=== PATIENT | female | born 1995 | race African-American/Black ===

== ENCOUNTER 2020-01-22 19:09 | Emergency (ER) | payer MEDICAID, OTHER ==
[2020-01-22 19:32] LABS: Bilirubin Negative (Negative); Blood, Urine Large (Negative); Clarity Cloudy (Clear); Glucose, Urine (Dipstick) Negative (Negative); Ketone, Urine Negative (Negative); Leukocyte Negative (Negative); Nitrite Negative (Negative); Protein, Urine (Dipstick) 30 mg/dL (Neg-Trace); Specific Gravity, Urine 1.031 (1.002-1.036); Urobilinogen 0.2 mg/dL (Less than 2); pH, Urine 5.5 (5.0-9.0)
[2020-01-22 19:34] LABS: WBC/HPF 0-3 HPF (0-3)
[2020-01-22 19:35] LABS: Bacteria/HPF 2+ HPF (None Seen); Mucous/LPF 2+ LPF (<2+)
[2020-01-22 19:37] LABS: Pregnancy Test - Urine (BHCG) Negative (Negative); Pregu Control Background? CLEAR/WHITE (CLR/WHITE); Pregu Control Bar Appear? YES (CONTROL BAR); Specific Gravity 1.031 (1.002-1.036)
[2020-01-23 20:10] LABS: Chlam.trachomatis by PCR,Urine Not Detected (NotDetected)
== END 2020-01-22 20:42 | disposition home or self-care (01) ==
LOC: BURERS 19:09
DX: O03.9 Complete or unspecified spontaneous abortion without complication (principal)
CPT/HCPCS: 36415; 81003; 81015; 81025; 84702; 87491; 87591; 99284